=== PATIENT | male | born 1950 | race Caucasian/White ===

== ENCOUNTER 2018-12-12 11:07 | Inpatient (IN) | payer OTHER, MEDICARE ==
[~2018-12-12] VITALS: Ht 175.3 cm; Wt 91.2 kg
[2018-12-12 11:07] VITALS: BP_SYST 138
--- NOTE | 2018-12-12 11:07 | NUR ---
Pt placed to ER bed 01, to gown, to panel monitor. Pt c/o rapid heart rate x 1 hour [facility] [employer]. Pt states that he was sitting down and began feeling his heart race. Pt reports that his HR was 199 per wrist monitor. Pt AAOX4, denies c/o C/P or SOB, non-diaphoretic. SVT with HR 204 per bedside panel monitor, SPO2 98% RA. Dr. Coker called to bedside.
--- NOTE | 2018-12-12 11:10 | NUR ---
Dr. Coker at bedside. Attempted vagal maneuvers (bearing down and blowing through a straw) with no conversion noted to cardiac rhythm. Pt denies c/o C/P or SOB. Family member at bedside.
--- NOTE | 2018-12-12 11:12 | NUR ---
# 20 gauge angiocath placed to RAC. Use of asceptic technique. Opsite placed over site. Blood return noted. Blood for lab drawn from site. Flushed with 10 cc of normal saline. No evidence of infiltration noted. Patient tolerated well.
--- NOTE | 2018-12-12 11:20 | NUR ---
Dr. Coker, RT, ACLS RN at bedside. Adnosine 6 mg given rapid IVP. Pt HR converts from SVT with rate [address] with rate 118. Pt denies C/P or SOB, AAOx4, will continue to monitor.
[2018-12-12] MEDS ORDERED: NACL 0.9% 1,000 ML IV ONE (11:21)
[2018-12-12] MEDS ORDERED: ADENOSINE 6MG/2ML VIAL ONE (11:25)
[2018-12-12] MEDS ORDERED: ASPIRIN 81 MG TAB.CHEW PO ONE (11:30)
[2018-12-12] MEDS ORDERED: ADENOSINE 6MG/2ML VIAL IVP ONE (11:30)
[2018-12-12 11:31] LABS: BASOPHILS % (AUTO) 0.3 % (0.0-2.0); EOSINOPHILS # (AUTO) 0.1 K/uL (0.0-0.4); EOSINOPHILS % (AUTO) 1.3 % (0.0-4.0); HEMATOCRIT 44.4 % (36-54); HEMOGLOBIN 14.8 g/dL (14.0-18.0); LYMPHOCYTES # (AUTO) 2.1 K/uL (1.0-5.5); LYMPHOCYTES % (AUTO) 25.8 % (20.5-51.5); MEAN CORPUSCULAR HEMOGLOBIN 30 pg (27-31); MEAN CORPUSCULAR HGB CONC 33 % (32-36); MEAN CORPUSCULAR VOLUME 89 fL (79.0-98.0); MONOCYTES # (AUTO) 0.8 K/uL (0.0-1.0); MONOCYTES % (AUTO) 9.6 % (1.7-9.3); NEUTROPHILS # (AUTO) 5.1 K/uL (1.8-7.7); PLATELET COUNT (AUTO) 205 K/uL (130-430); RED BLOOD CELL COUNT(AUTO) 4.97 MIL/uL (4.2-6.2); RED CELL DISTRIBUTION WIDTH 15.1 % (9.0-15.0); WHITE BLOOD COUNT (AUTO) 8.1 K/uL (4.8-10.8)
--- NOTE | 2018-12-12 11:45 | NUR ---
X-ray at bedside.
[2018-12-12 11:46] LABS: ANION GAP 14 (5-15); CALCIUM 9.4 mg/dL (8.4-11.0); CHLORIDE 98 mmol/L (98-107); CREATININE 1.31 mg/dL (0.55-1.30); GLUCOSE 204 mg/dL (70-99); POTASSIUM 3.9 mmol/L (3.5-5.1); SODIUM SERUM 135 mmol/L (136-145); UREA NITROGEN, BLOOD 26 mg/dL (8-21)
[2018-12-12 11:47] LABS: GFR AFRICAN AMERICAN 70 mL/min (>90)
[2018-12-12 11:55] LABS: ALANINE AMINOTRANSFERASE 64 U/L (12-78); ALBUMIN 3.7 g/dL (3.4-4.8); ASPARTATE AMINOTRANSFERASE 41 U/L (10-37); TOTAL BILIRUBIN 0.5 mg/dL (0.0-1.0)
--- NOTE | 2018-12-12 12:46 | NUR ---
Dietary called, message left for regular lunch tray.
--- NOTE | 2018-12-12 13:00 | NUR ---
Pt eating lunch. Denies c/o C/P or SOB, VSS, HR [address] ST.
--- NOTE | 2018-12-12 13:55 | NUR ---
DR CEHN SPEAKING WITH DR NORMAN
--- NOTE | 2018-12-12 14:15 | NUR ---
Note olrna in EDM - 12/12/18 at 1437 by SDEDAJ Patient will be admitted to care of Dr. Camp. Admitted to Tele unit. Will go to room 111A. Belongings list completed. Summary report printed. Report will be given at bedside.
[2018-12-12] MEDS ORDERED: LOSA100T3 PO (14:26)
[2018-12-12] MEDS ORDERED: METF1000 PO ×2 (14:26)
[2018-12-12] MEDS ORDERED: TERA10CA4 PO (14:26)
[2018-12-12] MEDS ORDERED: ASA81 PO (14:26)
[2018-12-12] MEDS ORDERED: METO25TA3 PO (14:26)
[2018-12-12] MEDS ORDERED: ALLO300T2 PO (14:26)
[2018-12-12] MEDS ORDERED: MELO15TA13 PO (14:26)
[2018-12-12] MEDS ORDERED: ATOR20TA64 PO (14:26)
[2018-12-12] MEDS ORDERED: ASCO500T20 PO (14:26)
[2018-12-12] MEDS ORDERED: LIRA0.6P SQ (14:26)
--- NOTE | 2018-12-12 14:26 | NUR ---
Medication reconciliation completed with information provided by pt. Any prior medication reconciliation on file was reviewed and corrected.
[2018-12-12] MEDS ORDERED: DEXTROSE 50% JECT 50 ML DISP.SYRIN IVP PRN (14:30)
[2018-12-12] MEDS ORDERED: INSULIN REGULAR, HUMAN 100 UNITS/ML, 10 ML VIAL (novoLIN R) SUBCUT PRN (14:30)
--- NOTE | 2018-12-12 14:36 | NUR ---
CONSULT: DR. SCHAFER FOR PSVT, DR VILLEDA SHORTHAND TEACHER TODAY EXCHANGE CALLED FOR CONSULT, SPOKE TO TAMARA.
--- NOTE | 2018-12-12 14:37 | NUR ---
Dr. Camp at bedside to assess pt.
--- NOTE | 2018-12-12 14:38 | NUR ---
Patient admitted to care of Dr. Camp. Admitted to Tele unit. Will go to room 111A. Belongings list completed. Summary report printed. Pt transported to unit via stretcher with portable cardiac monitoring in progress. Pt report will be given at bedside.
--- NOTE | 2018-12-12 14:45 | NUR ---
ADMISSION NOTE Received patient from ER via hernán, received report from CHEVY MCDONALD. Patient admitted with diagnosis of . Patient oriented to hospital routine, call light, toileting and safety-patient verbalized understanding.
[2018-12-12 14:55] VITALS: BP_SYST 113
[2018-12-12] MEDS ORDERED: ACETAMINOPHEN 325 MG TABLET PO PRN (15:00)
[2018-12-12] MEDS ORDERED: ZOLPIDEM TARTRATE 5 MG TABLET PO PRN (15:00)
--- NOTE | 2018-12-12 15:00 | NUR ---
RN ROUNDS RECEIVED REPORT FROM ADMISSION NURSE. PATIENT IS RESTING COMFORTABLY IN BED. NO S/S OF DISTRESS OR SOB. NO COMPLAINTS OF CHEST PAIN. PATIENT IS ALERT AND ORIENTED, ABLE TO EXPRESS NEEDS, AND ASK FOR ASSISTANCE. PATIENT ORIENTED TO ROOM, NURSE, AND CALL LIGHT. PATIENT REFUSES BED ALARM. CALL LIGHT IN REACH, BED IN LOWEST POSITION, AND WILL CONTINUE TO MONITOR.
[2018-12-12] MEDS: NACL 0.9% 1,000 ML IV SCH (15:27)
[2018-12-12 16:00] VITALS: BP_SYST 104
[2018-12-12] MEDS ORDERED: metFORMIN HCL 500 MG TABLET PO SCH (18:00)
--- NOTE | 2018-12-12 18:41 | NUR ---
CLOSING NOTE: PATIENT IS RESTING COMFORTABLY IN BED. NO S/S OF DISTRESS OR SOB. PATIENT IS ALERT AND ORIENTED, ABLE TO EXPRESS NEEDS, AND ASK FOR ASSISTANCE. ALL NEEDS MET DURING SHIFT. CALL LIGHT IN REACH, BED IN LOWEST POSITION, AND WILL GIVE REPORT TO NIGHT NURSE.
--- NOTE | 2018-12-12 19:15 | NUR ---
CHANGE OF SHIFT; pt. awake, alert, with visitors at bedside, denies any pain nor discomfort at this time. IVF infusing. instructed to call nurse for help, call light within reach.
[2018-12-12 20:00] VITALS: BP_SYST 103
[2018-12-12] MEDS: METOPROLOL SUCCINATE 25 MG TAB.SR.24H (TOPROL XL) PO SCH (20:18)
--- NOTE | 2018-12-12 20:30 | NUR ---
NOTES: pt. awake, ambulated to the restroom, at bedside. no complaints. IVF infusing with NS @ 50 cc/hr via rt. antecubital. groundwater monitoring technician shows sinus rhythm. denies any chest pain nor shortness of breath. pt. needs attended.
[2018-12-12] MEDS ORDERED: TERAZOSIN HCL 5 MG CAPSULE (HYTRIN) PO SCH (21:00)
--- NOTE | 2018-12-12 22:30 | NUR ---
NOTES: BS checked 124 , no sliding scale, HS snack given. urine sent for urinalysis.
[2018-12-12 23:29] LABS: BILIRUBIN,URINE NEGATIVE (NEGATIVE); BLOOD, URINE NEGATIVE (NEGATIVE); CLARITY/URINE CLEAR (CLEAR); COLOR,URINE YELLOW (YELLOW); GLUCOSE,URINE NEGATIVE (NEGATIVE); KETONES,URINE NEGATIVE (NEGATIVE); LEUKOCYTE ESTERASE ,URINE NEGATIVE (NEGATIVE); NITRITE, URINE NEGATIVE (NEGATIVE); PH,URINE 5.5 (5.0-8.0); PROTEIN URINE 2+ (NEGATIVE); UROBILINOGEN,URINE 0.2 (0.2-1.0)
[2018-12-12 23:33] LABS: BACTERIA,URINE RARE /HPF (None Seen); RBC,URINE 0-3 /HPF (0-3); WBC,URINE 0-3 /HPF (0-3)
--- NOTE | 2018-12-13 00:30 | NUR ---
NOTES: pt. sleeping when checked. cardiac pattern unchanged. continue to monitor.
--- NOTE | 2018-12-13 03:00 | NUR ---
NOTES: pt. remains sleeping, condition unchanged.
[2018-12-13 06:00] VITALS: BP_SYST 121
--- NOTE | 2018-12-13 06:00 | NUR ---
NOTES: pt. been sleeping at intervals and been ambulating to the restroom.
--- NOTE | 2018-12-13 06:45 | NUR ---
CLOSING NOTES; pt. resting, watching TV. IV site patent, IV infusing. no chest pain. needs attended. for further observation, pending labs this am, will endorse to day shift.
[2018-12-13 06:56] LABS: BASOPHILS % (AUTO) 0.6 % (0.0-2.0); EOSINOPHILS # (AUTO) 0.1 K/uL (0.0-0.4); EOSINOPHILS % (AUTO) 1.5 % (0.0-4.0); HEMATOCRIT 40.2 % (36-54); HEMOGLOBIN 13.3 g/dL (14.0-18.0); LYMPHOCYTES # (AUTO) 1.8 K/uL (1.0-5.5); LYMPHOCYTES % (AUTO) 24.6 % (20.5-51.5); MEAN CORPUSCULAR HEMOGLOBIN 30 pg (27-31); MEAN CORPUSCULAR HGB CONC 33 % (32-36); MEAN CORPUSCULAR VOLUME 89 fL (79.0-98.0); MONOCYTES # (AUTO) 0.7 K/uL (0.0-1.0); NEUTROPHILS # (AUTO) 4.5 K/uL (1.8-7.7); NEUTROPHILS % (AUTO) 63.3 % (40.0-70.0); PLATELET COUNT (AUTO) 176 K/uL (130-430); RED BLOOD CELL COUNT(AUTO) 4.52 MIL/uL (4.2-6.2); RED CELL DISTRIBUTION WIDTH 14.9 % (9.0-15.0); WHITE BLOOD COUNT (AUTO) 7.1 K/uL (4.8-10.8)
[2018-12-13 07:53] LABS: CALCIUM 9.2 mg/dL (8.4-11.0); CREATININE 1.12 mg/dL (0.55-1.30); FREE T4 (FREE THYROXINE) 0.6 ng/dL (0.6-1.6); POTASSIUM 4.3 mmol/L (3.5-5.1); THYROID STIMULATING HORMONE 1.81 uIu/mL (0.34-4.82)
[2018-12-13 08:00] VITALS: BP_SYST 126
[2018-12-13] MEDS ORDERED: metFORMIN HCL 500 MG TABLET PO SCH (08:00)
--- NOTE | 2018-12-13 08:00 | NUR ---
RN OPENING NOTE PATIENT IS RESTING IN BED, REPORT WAS TAKEN FROM THE HAND ROUNDER RN, PATIENT IS ALERT ORIENTED X4, PATIENT DENIES PAIN OR DISCOMFORT.PATIENT WAS ASSESSED, VITAL SIGNS ARE STABLE. PATIENT'S BED AT LOW POSITION AND CALL LIGHT WITHIN REACH, WILL CONTINUE TO MONITOR.
[2018-12-13] MEDS ORDERED: ATORVASTATIN 20 MG TABLET PO SCH (09:00)
[2018-12-13] MEDS ORDERED: LOSARTAN POTASSIUM 50 MG TABLET (COZAAR) PO SCH (09:00)
[2018-12-13] MEDS ORDERED: ALLOPURINOL 300 MG TABLET (ZYLOPRIM) PO SCH (09:00)
[2018-12-13] MEDS ORDERED: ASCORBIC ACID 500 MG TABLET PO SCH (09:00)
[2018-12-13] MEDS ORDERED: ASPIRIN 81 MG TAB.CHEW PO SCH (09:00)
[2018-12-13] MEDS: METOPROLOL SUCCINATE 25 MG TAB.SR.24H (TOPROL XL) PO SCH (09:00)
[2018-12-13] MEDS ORDERED: MELOXICAM 7.5 MG TABLET PO SCH (09:00)
[2018-12-13] MEDS ORDERED: NON-FORMULARY MEDICATION (Liraglutide (Victoza 2-Pak) 1.8 MG) SQ SCH (09:00)
--- NOTE | 2018-12-13 10:00 | NUR ---
RN NOTE PATIENT WAS GIVEN HIS MEDICATION, DR. SCHAFER SAW THE PATIENT AND CLEARED HIM TO BE D/C HOME, WILL CONTACT DR. NORMAN
[2018-12-13] MEDS: NACL 0.9% 1,000 ML IV SCH (10:05)
--- NOTE | 2018-12-13 12:00 | NUR ---
RN NOTE PATIENT BLOOD SUGAR WAS MEASURED TO BE 118 MG/DL. PATIENT GOT NO COVERAGE, PATIENT WILL BE D/C HOME WILL BE GIVING THE D/C INSTRUCTION AND EDUCATIONAL MATERIAL TO THE PATIENT AFTER EDUCATING HIM ABOUT HIS DISEASE PROCESS. WILL CONTINUE TO MONITOR.
[2018-12-13] MEDS ORDERED: GLU500 PO (12:21)
[2018-12-13] MEDS ORDERED: METO-540 PO (12:21)
[2018-12-13 13:02] VITALS: BP_SYST 126
--- NOTE | 2018-12-13 13:45 | NUR ---
RN CLOSING NOTE PATIENT WAS DISCHARGED HOME, GIVEN HIS DISCHARGE INSTRUCTION.F/U VISIT WITH HIS PCP IN [place] IN ONE WEEK. PATIENT SAY WILL SET THE APPOINTMENT BY HIMSELF. SALINE LOCK WAS REMOVED. ACCOMPANY HIM IN THEIR PRIVATE CAR. PATIENT WAS GIVEN HIS EDUCATION ABOUT PSVT. PATIENT VERBALIZED UNDERSTANDING, VITAL SIGNS ARE STABLE. AND PATIENT WAS ESCORTED TO THE PARKING LOT TO HIS CAR. AND LEFT HOME.
--- NOTE | 2018-12-16 14:22 | NUR ---
DISCHARGE FOLLOW UP PHONE CALL: DEEP WELL CONTRACTOR phoned pt @ [phone] who states he is doing "very well". Pt states he was not given new medication but dosage was increased. Pt has a follow up appointment with his PCP in [place] on 12/18 and will bring medical records to appointment. DEEP WELL CONTRACTOR informed pt to bring discharge instructions to MD appointment; pt agreed. DEEP WELL CONTRACTOR offered a follow up call from color receiver; pt declined. No further follow up call needed at this time.
== END 2018-12-13 13:37 | disposition home or self-care (01) | DRG 682 ==
LOC: SED 11:07 → STU 14:09
PROVIDERS: ADMIT Internal Medicine; ATTEND Internal Medicine
DX: N17.9 Acute kidney failure, unspecified (principal); R65.11 Systemic inflammatory response syndrome (SIRS) of non-infectious origin with acute organ dysfunction; I47.1 Supraventricular tachycardia; E86.0 Dehydration; N40.0 Benign prostatic hyperplasia without lower urinary tract symptoms; I10 Essential (primary) hypertension; E11.9 Type 2 diabetes mellitus without complications; E78.5 Hyperlipidemia, unspecified; M19.90 Unspecified osteoarthritis, unspecified site; M10.9 Gout, unspecified; Z79.899 Other long term (current) drug therapy; Z79.82 Long term (current) use of aspirin
CPT/HCPCS: 36415; 71045; 80048; 80053; 80061; 81000-TC; 82962; 84439; 84443-TC; 84484; 85025; 93005; 93306; 99285; G0378; J0153; J1815; J7030